=== PATIENT | female | born 1980 ===

== ENCOUNTER 2018-01-22 12:10 | Emergency (ER) | payer OTHER ==
[2018-01-22 12:27] VITALS: BMI 20.9
[2018-01-22 12:32] VITALS: TEMP 98.6
--- NOTE | 2018-01-22 12:56 | ED PDOC ---
Arrival/HPI - General Chief Complaint: Back Pain Time Seen by Provider: 01/22/18 12:42 Historian: Patient - History of Present Illness Narrative History of Present Illness (Text): 01/22/18 12:50 A 37 year old female, whose past medical history includes lupus and rheumatoid arthritis, presents to the emergency department complaining of bilateral neck and lower back pain. Patient reports she was unable to schedule an appointment with her solution spec today because he is away on vacation. Patient took 2 Aspirin yesterday, with no improvement of symptoms. Patient denies any recent trauma, fever, chills, nausea, vomiting, urinary symptoms, abdominal pain, chest pain, shortness of breath or any other complaints. Patient reports she last saw her solution spec a few weeks ago and had blood work done (unknown results) and scheduled xrays for tomorrow. Past Medical History - Provider Review Nursing Documentation Reviewed: Yes - Infectious Disease Hx of Infectious Diseases: None - Tetanus Immunization Tetanus Immunization: Unknown - Cardiac Hx Cardiac Disorders: No Hx Hypertension: No - Pulmonary Hx Tuberculosis: No - Neurological HX Cerebrovascular Accident: No Hx Seizures: No - HEENT Hx HEENT Disorder: No - Renal Hx Renal Disorder: No - Endocrine/Metabolic Hx Systemic Lupus Erythematosus: Yes - Hematological/Oncological Hx Blood Disorders: Yes Other/Comment: lupus - Integumentary Hx Dermatological Disorder: No - Musculoskeletal/Rheumatological Hx Rheumatoid Arthritis: Yes Other/Comment: lupus - Gastrointestinal Hx Gastrointestinal Disorders: Yes Other/Comment: Celiac Disease - Genitourinary/Gynecological Hx Sexually Transmitted Diseases: No - Psychiatric Hx Depression: No Hx Emotional Abuse: No Hx Physical Abuse: No Hx Substance Use: No - Past Surgical History Past Surgical History: No Previous - Surgical History Hx Dilation and Curettage: Yes (x 1) - Anesthesia Hx Anesthesia: No Hx Anesthesia Reactions: No Hx Malignant Hyperthermia: No - Suicidal Assessment Feels Threatened In Home Enviroment: No Family/Social History - Physician Review Nursing Documentation Reviewed: Yes Family/Social History: No Known Family HX Smoking Status: Never Smoked Hx Alcohol Use: Yes (wine) Hx Substance Use: No Hx Substance Use Treatment: No Allergies/Home Meds Allergies/Adverse Reactions: Allergies No Known Allergies Allergy (Verified 01/22/18 12:27) Home Medications: Home Meds Medication Instructions Recorded Confirmed Hydroxychloroquine Sulfate 0 mg PO BID 01/22/18 01/22/18 [Plaquenil] Review of Systems - Physician Review All systems were reviewed & negative as marked: Yes - Review of Systems Constitutional: absent: Fevers, Night Sweats Respiratory: absent: SOB Cardiovascular: absent: Chest Pain Gastrointestinal: absent: Abdominal Pain, Nausea, Vomiting Genitourinary Female: absent: Dysuria, Frequency, Hematuria Musculoskeletal: Back Pain, Neck Pain Physical Exam Vital Signs Reviewed: Yes Vital Signs Temp Pulse Resp BP Pulse Ox 01/22/18 12:28 98.6 F 80 17 115/93 H 99 Temperature: Afebrile Blood Pressure: Hypertensive Pulse: Regular Respiratory Rate: Normal Appearance: Positive for: Well-Appearing, Non-Toxic, Comfortable Pain Distress: None Mental Status: Positive for: Alert and Oriented X 3 - Systems Exam Head: Present: Atraumatic, Normocephalic Pupils: Present: PERRL Extroacular Muscles: Present: EOMI Conjunctiva: Present: Normal Mouth: Present: Moist Mucous Membranes Neck: Present: Normal Range of Motion. No: MIDLINE TENDERNESS, Paraspinal Tenderness Respiratory/Chest: Present: Clear to Auscultation, Good Air Exchange. No: Respiratory Distress, Accessory Muscle Use Cardiovascular: Present: Regular Rate and Rhythm, Normal S1, S2. No: Murmurs Abdomen: No: Tenderness, Distention, Peritoneal Signs Back: Present: Normal Inspection. No: CVA Tenderness, Midline Tenderness, Paraspinal Tenderness Upper Extremity: Present: Normal Inspection. No: Cyanosis, Edema Lower Extremity: Present: Normal Inspection. No: Edema Neurological: Present: GCS=15, CN II-XII Intact, Speech Normal Skin: Present: Warm, Dry, Normal Color. No: Rashes Psychiatric: Present: Alert, Oriented x 3, Normal Insight, Normal Concentration Medical Decision Making ED Course and Treatment: 01/22/18 12:50 Impression: A 37 year old female with neck and back pain. Plan: -- Toradol and Depomedrol -- Reassess and disposition Progress Notes: - RAD Interpretation Radiology Orders: 01/22/18 12:58 CERVICAL SPINE W/O CONTRAST [CT] Stat LUMBAR SPINE W/O CONTRAST [CT] Stat - Medication Orders Current Medication Orders: Discontinued Medications Cyclobenzaprine HCl (Flexeril) 10 mg PO STAT STA Stop: 01/22/18 12:59 Last Admin: 01/22/18 13:13 Dose: 10 mg Ketorolac Tromethamine (Toradol) 60 mg IM STAT STA Stop: 01/22/18 12:58 Last Admin: 01/22/18 13:22 Dose: 60 mg MAR Pain Assessment Document 01/22/18 13:22 GMD (Rec: 01/22/18 13:22 GMD [id number]) Pain Reassessment Is this a pain reassessment? No Presence of Pain Presence of Pain Yes IM Administration Charges Document 01/22/18 13:22 GMD (Rec: 01/22/18 13:22 GMD [id number]) Injection Site MAR Injection Site Right Gluteus Deangelo Charges for Administration # of IM Administrations 1 Methylprednisolone Acetate (Depo-Medrol) 40 mg IM STAT STA Stop: 01/22/18 12:58 Last Admin: 01/22/18 13:22 Dose: 40 mg IM Administration Charges Document 01/22/18 13:22 GMD (Rec: 01/22/18 13:23 GMD [id number]) Injection Site MAR Injection Site Left Deltoid Charges for Administration # of IM Administrations 1 - Scribe Statement The provider has reviewed the documentation as recorded by the Kathleenibe Nelda Sexton Provider Scribe Attestation: All medical record entries made by the Scribe were at my direction and personally dictated by me. I have reviewed the chart and agree that the record accurately reflects my personal performance of the history, physical exam, medical decision making, and the department course for this patient. I have also personally directed, reviewed, and agree with the discharge instructions and disposition. Disposition/Present on Arrival - Present on Arrival Any Indicators Present on Arrival: No History of DVT/PE: No History of Uncontrolled Diabetes: No Urinary Catheter: No History of Decub. Ulcer: No History Surgical Site Infection Following: None - Disposition Have Diagnosis and Disposition been Completed?: Yes Diagnosis: Lupus, Rheumatoid arthritis, Myalgia, Arthralgia, Lumbar radiculopathy Disposition: HOME/ ROUTINE Disposition Time: 15:11 Patient Plan: Discharge Patient Problems: Current Active Problems Problem Status Onset Arthralgia Acute Lumbar radiculopathy Acute Lupus Acute Myalgia Acute Rheumatoid arthritis Acute Condition: GOOD Discharge Instructions (ExitCare): Rheumatoid Arthritis (DC), Radiculopathy (DC ), Muscle and Bone Pain (DC), Lupus (DC), Joint Pain, Radiculopathy Additional Instructions: Jennifer - Sorry that you are hurting so badly. Return to us if worse. Follow up with your solution spec. Use the motrin and zanaflex for your pain/discomfort. Best- Dr. Deacon Adams PS. Take your CT reports with you. Forms: [facility] (Somali), WORK NOTE
[2018-01-22] MEDS ORDERED: MethylPREDNISolone Depo 40 mg/ml Inj IM STA (12:57)
--- NOTE | 2018-01-22 14:07 | CT ---
PROCEDURE: CT Cervical Spine without contrast HISTORY: Severe pain COMPARISON: None available. TECHNIQUE: Axial computed tomography images were obtained of the cervical spine without the use of intravenous contrast. Coronal and sagittal reformatted images were created and reviewed. Radiation dose: Total exam DLP = 280 mGy-cm. This CT exam was performed using one or more of the following dose reduction techniques: Automated exposure control, adjustment of the mA and/or kV according to patient size, and/or use of iterative reconstruction technique. FINDINGS: VERTEBRAE: No fracture. Normal alignment. No destructive bony lesion. DISCS/SPINAL CANAL/NEURAL FORAMINA: No significant central canal or neural foraminal stenosis. Discs heights are grossly preserved. PARASPINAL SOFT TISSUES: Unremarkable. OTHER FINDINGS: None. IMPRESSION: Unremarkable CT of the cervical spine.
--- NOTE | 2018-01-22 14:30 | CT ---
PROCEDURE: CT Lumbar Spine without contrast HISTORY: severe pain in cervical and lumbar spine COMPARISON: None. TECHNIQUE: Axial computed tomography images were obtained of the lumbar spine without the use of intravenous contrast. Coronal and sagittal reformatted images were created and reviewed. Radiation dose: Total exam DLP = 328.35 mGy-cm. This CT exam was performed using one or more of the following dose reduction techniques: Automated exposure control, adjustment of the mA and/or kV according to patient size, and/or use of iterative reconstruction technique. FINDINGS: VERTEBRAE: Normal lumbar curvature without fracture or spondylolisthesis identified. No destructive bony lesion appreciable. Vertebral body heights are within normal limits throughout as well as intervertebral disc heights. Prevertebral paraspinal soft tissues appear diffusely unremarkable. DISCS/SPINAL CANAL/NEURAL FORAMINA: L1-2: Unremarkable. L2-3: Unremarkable. L3-4: Mild circumferential disc bulging is appreciated which causes mild bilateral lateral recess stenosis but not generalized central canal stenosis. No significant neural foraminal stenosis bilaterally. L4-5: Mild circumferential disc bulging is appreciated which causes mild bilateral lateral recess stenosis but not generalized central canal stenosis. No significant neural foraminal stenosis bilaterally. L5-S1: Unremarkable. PARASPINAL SOFT TISSUES: As above. OTHER FINDINGS: None. IMPRESSION: Mild disc bulging at L3-4 and L4-5 results in mild stenosis of the bilateral lateral recesses symmetrically but without causing generalized overall central canal stenosis. No bony stenosis throughout the examination. No fracture or spondylolisthesis. Normal curvature identified.
[2018-01-22 16:07] VITALS: BP 105/67; PULSE 77; RESP 18; O2SAT 100
== END 2018-01-22 16:10 | disposition home or self-care (01) ==
LOC: ED 12:10
DX: M06.9 Rheumatoid arthritis, unspecified (principal); M32.9 Systemic lupus erythematosus, unspecified; M54.16 Radiculopathy, lumbar region; M25.50 Pain in unspecified joint; M79.1 Myalgia
CPT/HCPCS: 72125; 72131; 81025; 96372; 99284; J1030; J1885